=== PATIENT | male | born 1940 | race Caucasian/White ===

== ENCOUNTER → 2017-12-26 | Emergency (ER) | payer OTHER ==
[~2017-12-26] VITALS: Ht 170.2 cm; Wt 69.4 kg
[~2017-12-26] MED LIST: ALPRAZOLAM0.5 MG PO; ASA-EC81 MG PO; AZOR 5-20 MG T1 EACH; AZOR 5/20 MG TA1 TAB PO; DICLOFENAC POTA50 MG PO; ELIQUIS2.5 MG; HYDROCHLOROTH12.5 MG PO; TOPROL XL25 M1; XANAX1 MG
== END | disposition home or self-care (01) ==
LOC: ER 11:24
DX: S50.02XA Contusion of left elbow, initial encounter (principal); S50.01XA Contusion of right elbow, initial encounter; W18.39XA Other fall on same level, initial encounter; Y93.89 Activity, other specified; Y92.098 Other place in other non-institutional residence as the place of occurrence of the external cause; Y99.8 Other external cause status

== ENCOUNTER 2018-05-17 17:16 | Emergency (ER) | payer OTHER ==
[~2018-05-17] VITALS: Ht 170.2 cm; Wt 71.2 kg
== END 2018-05-17 22:38 | disposition home or self-care (01) ==
LOC: ER 17:16
DX: R00.2 Palpitations (principal)

== ENCOUNTER → 2018-10-08 | Emergency (ER) | payer OTHER ==
[~2018-10-08] VITALS: Ht 170.2 cm; Wt 71.7 kg
[~2018-10-08] MED LIST changes: +AZOR 5-40 MG T1 EACH; +LASIX20 MG PO
== END | disposition home or self-care (01) ==
LOC: ER 23:37
DX: R60.0 Localized edema (principal)

== ENCOUNTER 2018-12-24 06:29 | Outpatient (CLI) | payer OTHER | END 2018-12-24 06:41 | disposition home or self-care (01) | LOC: LAB 06:29 | DX: D64.89 Other specified anemias (principal); R10.9 Unspecified abdominal pain; E78.49 Other hyperlipidemia; R80.8 Other proteinuria; E11.9 Type 2 diabetes mellitus without complications; I10 Essential (primary) hypertension; E03.8 Other specified hypothyroidism; Z12.11 Encounter for screening for malignant neoplasm of colon; N40.0 Benign prostatic hyperplasia without lower urinary tract symptoms; M10.9 Gout, unspecified; D75.1 Secondary polycythemia; I48.2 Chronic atrial fibrillation; Z79.01 Long term (current) use of anticoagulants; D50.8 Other iron deficiency anemias; D51.8 Other vitamin B12 deficiency anemias ==

== ENCOUNTER → 2019-01-03 | Outpatient (CLI) | payer OTHER | END | disposition home or self-care (01) | LOC: NUCLEAR 09:38 | DX: I65.29 Occlusion and stenosis of unspecified carotid artery (principal) ==

== ENCOUNTER 2019-01-08 09:47 | Outpatient (CLI) | payer OTHER | END 2019-01-08 09:50 | disposition home or self-care (01) | LOC: LAB 09:47 | DX: C61 Malignant neoplasm of prostate (principal); D75.1 Secondary polycythemia; I48.2 Chronic atrial fibrillation; Z79.01 Long term (current) use of anticoagulants; I10 Essential (primary) hypertension; R97.20 Elevated prostate specific antigen [PSA] ==

== ENCOUNTER → 2019-01-08 | Outpatient (CLI) | payer OTHER | END | disposition home or self-care (01) | LOC: NUCLEAR 08:53 | DX: C61 Malignant neoplasm of prostate (principal); D75.1 Secondary polycythemia; D58.2 Other hemoglobinopathies; I48.2 Chronic atrial fibrillation; Z79.01 Long term (current) use of anticoagulants; I10 Essential (primary) hypertension | CPT/HCPCS: 78306; 78320; A9503 ==

== ENCOUNTER 2019-02-05 10:19 | Outpatient (CLI) | payer OTHER | END 2019-02-05 10:23 | disposition home or self-care (01) | LOC: RAD 10:19 | DX: C61 Malignant neoplasm of prostate (principal) ==

== ENCOUNTER 2021-05-24 09:35 | Emergency (ER) | payer OTHER ==
[~2021-05-24] VITALS: Ht 170.2 cm; Wt 74.8 kg
[2021-05-24] MEDS ORDERED: HYDRALAZINE HCL50 MG (09:59)
[2021-05-24] MEDS ORDERED: FLECAINIDE ACET50 MG PO (14:59)
== END 2021-05-24 15:19 ==
LOC: ER 09:35 → CPU-OBS 10:21 → ER 15:19
DX: I48.91 Unspecified atrial fibrillation (principal)
CPT/HCPCS: 93005; G0378; G0379